=== PATIENT | female | born 1995 | race Caucasian/White ===

== ENCOUNTER 2016-07-10 18:47 | Outpatient (CLI) | payer OTHER ==
[~2016-07-10] VITALS: Ht 152.4 cm; Wt 55.4 kg
[2016-07-10] MEDS ORDERED: PREN1TAB17 PO (18:59)
[2016-07-10 19:02] VITALS: Ht 152.4 cm; Wt 55.4 kg
[2016-07-10 19:03] VITALS: BP 97/50; RESP 15
[2016-07-10 20:27] LABS: ADD SCAN DIFF NO
[2016-07-10 20:28] LABS: BASOPHILS % 0.2 % (0.0-2.0); EOSINOPHILS # 0.1 10^3/ul (0.0-0.5); EOSINOPHILS % 1.2 % (0.0-7.0); HEMATOCRIT 31.6 % (37.0-47.0); HEMOGLOBIN 11.3 g/dl (12.0-16.0); LYMPHOCYTES # 0.9 10^3/ul (0.8-2.9); LYMPHOCYTES % 14.3 % (15.0-51.0); MEAN CORPUSCULAR HEMOGLOBIN 32.9 pg (29.0-33.0); MEAN CORPUSCULAR HGB CONC 35.8 g/dl (32.0-37.0); MEAN CORPUSCULAR VOLUME 92.1 fl (82.0-101.0); MEAN PLATELET VOLUME 9.5 fl (7.4-10.4); MONOCYTE # 0.4 10^3/ul (0.3-0.9); MONOCYTES % 6.2 % (0.0-11.0); NEUTROPHIL # 4.6 10^3/ul (1.6-7.5); NEUTROPHILS % 77.6 % (39.0-77.0); PLATELET COUNT 180 10^3/UL (140-415); RED BLOOD COUNT 3.43 10^6/ul (4.20-5.40); WHITE BLOOD COUNT 5.9 10^3/ul (4.8-10.8)
[2016-07-10] MEDS ORDERED: LACTATED RINGER'S 1,000 ML IV ONE (20:30)
[2016-07-10] MEDS ORDERED: TERBUTALINE 1 MG/ML INJ SC ONE ×2 (20:30→22:00)
[2016-07-10 20:36] LABS: URINE BILIRUBIN (Dip) NEGATIVE (NEGATIVE); URINE BLOOD (Dip) NEGATIVE (NEGATIVE); URINE COLOR YELLOW (YELLOW); URINE GLUCOSE (Dip) NEGATIVE (NEGATIVE); URINE KETONES (Dip) NEGATIVE (NEGATIVE); URINE LEUKOCYTE ESTERASE (Dip) NEGATIVE (NEGATIVE); URINE NITRITE (Dip) NEGATIVE (NEGATIVE); URINE UROBILINOGEN (Dip) 1.0 E.U./dL (0.1-1.0)
[2016-07-10 20:48] LABS: ADD UMIC NO; URINE TOTAL PROTEIN (Dip) NEGATIVE (NEGATIVE)
[2016-07-10] MEDS ORDERED: LACTATED RINGER'S 1,000 ML IV SCH (21:00)
--- NOTE | 2016-07-10 21:04 | RADRPT ---
PROCEDURE: Limited obstetric ultrasound CLINICAL INDICATION: Pain , labor TECHNIQUE: Multiple transverse and longitudinal grayscale images of the pelvis were obtained dia sabdominally and transvaginally.. COMPARISON: same day FINDINGS: The cervix is closed with a length of 4.2 cm. There is a single viable intrauterine gestation. Cardiac activity is present with 132 beats per min cecil. There is a vertex presentation. The placenta is anterior. There is no evidence for an abruption or placenta previa. MVP = 7.5 cm. RPTAT: AA IMPRESSION: Cervix length measures 4.2 cm. .Nithin Haider MD, MD Date Time Electronically viewed and signed by .Nithin Haider MD, on 07/10/2016 21:04 .S/
[2016-07-10] MEDS ORDERED: BETAMET NA PHOS/AC(6 MG/ML) 5ML INJ IM ONE (22:00)
--- NOTE | 2016-07-10 23:37 | TRIAGE ---
OB Triage Datetime Report Generated by CPN: 07/10/2016 23:37 Datetime: 07/10/2016 23:18 Stage of : OB Triage Datetime: 07/10/2016 22:50 Stage of : OB Triage Labor Evaluation Frequency: 0 Monitor Mode: External Resting Tone [place]: Relaxed Heart Rate FHR Baseline Rate: 130 Monitor Mode: External US FHR Baseline Changes: No Baseline Change Variability: Moderate 6-25 bpm Accelerations: 15X15 Decelerations: None Category: Category I Datetime: 07/10/2016 21:55 Stage of : OB Triage Datetime: 07/10/2016 21:06 Monitor Mode: External Quality: Mild Pattern: Normal: <= 5 Contractions in 10 Minutes Resting Tone [place]: Relaxed Heart Rate FHR Baseline Rate: 120 Monitor Mode: External US Variability: Moderate 6-25 bpm Accelerations: 15X15 Datetime: 07/10/2016 21:04 Monitor Mode: External Monitor Mode: External US Datetime: 07/10/2016 20:00 Stage of : OB Triage Datetime: 07/10/2016 19:34 Stage of : OB Triage Maternal Assessment Level of Consciousness: Fully Conscious Headache: Denies Blurred Vision: No Nausea/Vomiting: Denies RUQ Epigastric Pain: Denies Facial Edema: None Labor Evaluation Frequency: 5-10 Monitor Mode: External Duration (sec)2399: 20-40sec Quality: Mild Pattern: Normal: <= 5 Contractions in 10 Minutes Resting Tone [place]: Relaxed Heart Rate FHR Baseline Rate: 150 Monitor Mode: External US FHR Baseline Changes: No Baseline Change Variability: Moderate 6-25 bpm Accelerations: 15X15 Pain Assessment Pain Scale: 7 Pain Presence: Intermittent Pain Type: Cramping; Pressure Pain Location: Abdomen; Back Datetime: 07/10/2016 19:07 Stage of : OB Triage Assessment Type: Triage Maternal Assessment Level of Consciousness: Fully Conscious DTR's/Clonus: DTRs 2+; No Clonus Headache: Denies Blurred Vision: No Respiratory Effort: Unlabored; Regular Rhythm; Equal Expansion Breath Sounds, Left: Clear and Equal Breath Sounds, Right: Clear and Equal Nausea/Vomiting: Denies RUQ Epigastric Pain: Denies Lower Extremities Edema: None Degree: None Upper Extremities Edema: None Degree: None Facial Edema: None Temperature Route: Oral Fall Risk Assessment History of Falling: (0) No Secondary Diagnosis: (0) No Ambulatory Aid: (0) Bedrest/Nurse Assist IV Therapy: (0) No Gait: (0) Normal/Bedrest/Immobile Mental Status: (0) Oriented to Own Ability Fall Score: 0 Fall Risk Score Definition: No Risk: No action required Monitor Mode: External Heart Rate FHR Baseline Rate: 155 Monitor Mode: External US Variability: Moderate 6-25 bpm Accelerations: 15X15 Decelerations: None Category: Category I Pain Assessment Pain Scale: 7 Pain Presence: Intermittent Pain Type: lower abdominal pain Datetime: 07/10/2016 19:05 Time of Arrival: 07/10/2016 18:41 EGA: 25.4 Arrived By: Ambulatory Arrived From: Home Chief Complaint: lower bilateral pressure Movement: Present Contractions: Denies/Absent Rupture of Membranes: Denies Vaginal Discharge: Denies Recent Sexual Intercouse: Denies Abdominal Trauma: Not Applicable Patient Complaints: Other Additional Patient Complaints: ucs Time Provider Notified: 07/10/2016 20:00 Provider Notified: Dr Mcintosh Initial Plan: [email or web address] , call
--- NOTE | 2016-07-10 23:54 | PN ---
Date/Time of Note Date/Time of Note DATE: 07/10/16 TIME: 23:48 OB Subjective Subjective Subjective c/o lower abdominal pain radiate to back 21 y.o x1 x2 c/s at 25w4d pain level 7/10 OB Objective Objective Objective afebrile u/a neg cervical length 4.2 ANEESH 7.5 wbc 8900 OB Assessment/Plan Other Assessment: IUP 25w4d r/o PTL resolved s/p x1 bmz Other plan: X2 terbutaline with IV hydration X1BMZ given rth for next BMZ in 24hr TESSIE HOLLIDAY MD July 10, 2016 23:54
== END 2016-07-10 23:33 | disposition home or self-care (01) ==
LOC: OBT 18:47 → L-D 18:48 → OBT 23:33
PROVIDERS: ATTEND Obstetrics & Gynecology
DX: O26.892 Other specified pregnancy related conditions, second trimester (principal); R10.30 Lower abdominal pain, unspecified; M54.9 Dorsalgia, unspecified; O60.02 Preterm labor without delivery, second trimester; Z3A.25 25 weeks gestation of pregnancy
CPT/HCPCS: 76815; 76817; 81003; 85025; J0702; J3105; J7120; 36415; 96360; 96361; 96372; G0463

== ENCOUNTER 2016-07-11 21:35 | Outpatient (CLI) | payer OTHER ==
[~2016-07-11] VITALS: Ht 152.4 cm; Wt 56.3 kg
[~2016-07-11 21:35] MED LIST: PREN1TAB17 PO
[2016-07-11 21:53] VITALS: BP 102/54; PULSE 76; RESP 18; Ht 152.4 cm; Wt 56.3 kg
[2016-07-11] MEDS ORDERED: BETAMET NA PHOS/AC(6 MG/ML) 5ML INJ IM ONE (22:00)
--- NOTE | 2016-07-11 22:35 | QN ---
Documentation Comment OB Triage- Laborist Pt is a 21yo at 25+5 with hx of C/S x2 presenting for 2nd dose of BMZ. Pt was seen in OB triage last night for r/o labor. TVCL 4.2cm and UCs resolved s/p Terbutaline. Pt received 1st dose of BMZ at that time. Tonight, pt denies UCs, LOF or VB. Reports normal FM. VS 97.9 102/54 76 18 FHT: Baseline 130s, mod kat, +accels, no decels [place]: Acontractile Gen: well appearing, NAD A/P: 2nd dose BMZ in the setting of concern for PTL 1d ago ->Pt received 2nd dose of BMZ and appropriate for d/c home. ->PTL and PPROM precautions reviewed. Questions answered to patient's satisfaction Pt to f/up with Dr. Mcintosh's office in 2d as scheduled CATERINA ADAMS MD July 11, 2016 22:35
--- NOTE | 2016-07-11 23:18 | TRIAGE ---
OB Triage Datetime Report Generated by CPN: 07/11/2016 23:18 Datetime: 07/11/2016 22:15 Stage of : OB Triage Contraction Comments: DR ADAMS AT BEDSIDE, TALKED TO PT., REVIEWED STRIP, DISCHARGE ORDERS RCVD , INSTRUCTIONS GIVEN, PT. HOME UNDELIVERED AT 2222 Datetime: 07/11/2016 22:00 Stage of : OB Triage Temperature Route: Oral Frequency: 0 Monitor Mode: External Pattern: Normal: <= 5 Contractions in 10 Minutes Resting Tone [place]: Relaxed FHR Baseline Rate: 140 Monitor Mode: External US Variability: Moderate 6-25 bpm Accelerations: 15X15 Decelerations: None Category: Category I Pain Presence: None/Denies Datetime: 07/11/2016 21:50 Time of Arrival: 07/11/2016 21:32 EGA: 25.5 Chief Complaint: CAME FOR 2ND DOSE OF BETAMETHASONE Movement: Present Contractions: Denies/Absent Rupture of Membranes: Denies Vaginal Bleeding: None Vaginal Discharge: Denies Time Provider Notified: 07/11/2016 21:50 Provider Notified: ADAMS Initial Plan: EFM, ASSESSMENT, CALL MD FOR ORDERS Datetime: 07/11/2016 21:40 Assessment Type: Triage Level of Consciousness: Fully Conscious DTR's/Clonus: DTRs 2+; No Clonus Headache: Denies Blurred Vision: No Respiratory Effort: Unlabored; Regular Rhythm; Equal Expansion Breath Sounds, Left: Clear and Equal Breath Sounds, Right: Clear and Equal Nausea/Vomiting: Denies RUQ Epigastric Pain: Denies Lower Extremities Edema: None Upper Extremities Edema: None Facial Edema: None History of Falling: (0) No Secondary Diagnosis: (0) No Ambulatory Aid: (0) Bedrest/Nurse Assist IV Therapy: (0) No Gait: (0) Normal/Bedrest/Immobile Mental Status: (0) Oriented to Own Ability Fall Score: 0 Fall Risk Score Definition: No Risk: No action required
== END 2016-07-11 22:22 | disposition home or self-care (01) ==
LOC: OBT 21:35 → L-D 21:36 → OBT 22:22
PROVIDERS: ATTEND Obstetrics & Gynecology
DX: O60.02 Preterm labor without delivery, second trimester (principal); Z3A.25 25 weeks gestation of pregnancy
CPT/HCPCS: J0702

== ENCOUNTER 2016-09-25 12:11 | Outpatient (CLI) | payer OTHER ==
[~2016-09-25] VITALS: Ht 152.4 cm; Wt 57.2 kg
[2016-09-25 12:37] VITALS: Ht 152.4 cm; Wt 57.2 kg
[2016-09-25 12:38] VITALS: BP 89/52; PULSE 78; RESP 18
[2016-09-25] MEDS ORDERED: LACTATED RINGER'S 1,000 ML IV SCH (13:30)
[2016-09-25] MEDS ORDERED: TERBUTALINE 1 MG/ML INJ SC ONE (13:30)
[2016-09-25 14:09] LABS: BASOPHILS % 0.1 % (0.0-2.0); EOSINOPHILS # 0.1 10^3/ul (0.0-0.5); EOSINOPHILS % 1.9 % (0.0-7.0); LYMPHOCYTES # 1.6 10^3/ul (0.8-2.9); LYMPHOCYTES % 21.7 % (15.0-51.0); MEAN CORPUSCULAR HEMOGLOBIN 33.1 pg (29.0-33.0); MEAN CORPUSCULAR HGB CONC 36.4 g/dl (32.0-37.0); MEAN CORPUSCULAR VOLUME 91.2 fl (82.0-101.0); MEAN PLATELET VOLUME 9.9 fl (7.4-10.4); MONOCYTE # 0.5 10^3/ul (0.3-0.9); MONOCYTES % 7.1 % (0.0-11.0); NEUTROPHIL # 5.2 10^3/ul (1.6-7.5); NEUTROPHILS % 68.9 % (39.0-77.0); PLATELET COUNT 178 10^3/UL (140-415); RED BLOOD COUNT 3.62 10^6/ul (4.20-5.40); RED CELL DISTRIBUTION WIDTH 11.9 % (11.5-14.5); WHITE BLOOD COUNT 7.5 10^3/ul (4.8-10.8)
[2016-09-25 14:13] LABS: ADD UMIC YES; UR ASCORBIC ACID NEGATIVE (NEGATIVE); UR BACTERIA FEW /HPF (NONE SEEN); UR BILIRUBIN (Dip) NEGATIVE (NEGATIVE); UR BLOOD (Dip) NEGATIVE (NEGATIVE); UR CLARITY SLIGHTLY CLOUDY (CLEAR); UR COLOR YELLOW (YELLOW); UR GLUCOSE (Dip) NEGATIVE (NEGATIVE); UR KETONES (Dip) NEGATIVE (NEGATIVE); UR LEUKOCYTE ESTERASE (Dip) 1+ Leu/ul (NEGATIVE); UR NITRITE (Dip) NEGATIVE (NEGATIVE); UR RBC 1 /HPF (0-5); UR SPECIFIC GRAVITY (Dip) 1.019 (1.003-1.030); UR SQUAMOUS EPITHELIAL CELL FEW /HPF (FEW); UR TOTAL PROTEIN (Dip) NEGATIVE (NEGATIVE); UR UROBILINOGEN (Dip) NEGATIVE (NEGATIVE)
--- NOTE | 2016-09-25 15:04 | PN ---
Triage Information Date/Time 09/25/2016 Weeks of Gestation 36+ : 4 Para: 3 Diabetes: none Hypertention: none Additional information 21 y/o female with contractions started today denies ROM and vaginal bleeding had history of 2 previous C-sections Objective Vital Signs Date Time Temp Pulse Resp B/P Pulse Ox O2 Delivery O2 Flow Rate FiO2 09/25/16 12:38 98.0 78 18 89/52 Room Air Heart Rate: 140's Heart Rate Comments reactive Contractions: 6-10 Minutes Apart Exam differed Results/Medications Result Diagram: 09/25/16 1330 Results 24 hrs Laboratory Tests Test 09/25/16 13:30 09/25/16 13:40 White Blood Count 7.5 # Red Blood Count 3.62 L Hemoglobin 12.0 Hematocrit 33.0 L Mean Corpuscular Volume 91.2 Mean Corpuscular Hemoglobin 33.1 H Mean Corpuscular Hemoglobin Concent 36.4 Red Cell Distribution Width 11.9 Platelet Count 178 Mean Platelet Volume 9.9 Neutrophils % 68.9 Lymphocytes % 21.7 Monocytes % 7.1 Eosinophils % 1.9 Basophils % 0.1 Nucleated Red Blood Cells % 0.0 Neutrophils # 5.2 Lymphocytes # 1.6 Monocytes # 0.5 Eosinophils # 0.1 Basophils # 0.0 Nucleated Red Blood Cells # 0.0 Urine Color YELLOW Urine Clarity SLIGHTLY CLOUDY A Urine pH 6.0 Urine Specific [place] 1.019 Urine Ketones NEGATIVE Urine Nitrite NEGATIVE Urine Bilirubin NEGATIVE Urine Urobilinogen NEGATIVE Urine Leukocyte Esterase 1+ H Urine Microscopic RBC 1 Urine Microscopic WBC 2 Urine Squamous Epithelial Cells FEW Urine Bacteria FEW A Urine Hemoglobin NEGATIVE Urine Glucose NEGATIVE Urine Total Protein NEGATIVE Medications Current Medications Lactated Ringer's (Lr) 1,000 ml @ 125 mls/hr Q8H IV Last administered on t 13:41; Admin Dose 125 MLS/HR; Start 09/25/16 at 13:30 Assessment/Plan after SQ terbutaline and IV hydration contractions resolved and patient subjectively felt better will follow outpatient and give labor precautions KORTNEY CROCKETT MD Sep 25, 2016 15:04
--- NOTE | 2016-09-25 15:45 | TRIAGE ---
OB Triage Datetime Report Generated by CPN: 09/25/2016 15:45 Datetime: 09/25/2016 14:56 Labor Evaluation Frequency: 0 Monitor Mode: External Pattern: Normal: <= 5 Contractions in 10 Minutes Resting Tone [place]: Relaxed Heart Rate FHR Baseline Rate: 120 Monitor Mode: External US Variability: Moderate 6-25 bpm Accelerations: 15X15 Decelerations: None Category: Category I Pain Presence: None/Denies Datetime: 09/25/2016 14:15 Pain Assessment Pain Scale: 2 Pain Presence: Intermittent Pain Type: Pressure Pain Location: Abdomen Pain Relief Measures: Comfort Measures Datetime: 09/25/2016 14:10 Labor Evaluation Frequency: X2 Monitor Mode: External Duration (sec)2399: 60-90 Pattern: Normal: <= 5 Contractions in 10 Minutes Resting Tone [place]: Relaxed Heart Rate FHR Baseline Rate: 120 Monitor Mode: External US Variability: Moderate 6-25 bpm Accelerations: 15X15 Decelerations: None Category: Category I Datetime: 09/25/2016 13:03 Pain Assessment Pain Scale: 7 Pain Presence: Intermittent Pain Type: Pressure Pain Location: Perineum Pain Relief Measures: Comfort Measures Datetime: 09/25/2016 12:44 Assessment Type: Admission Assessment Maternal Assessment Level of Consciousness: Fully Conscious DTR's/Clonus: DTRs 2+; No Clonus Headache: Denies Blurred Vision: No Respiratory Effort: Unlabored; Regular Rhythm; Equal Expansion Breath Sounds, Left: Clear and Equal Breath Sounds, Right: Clear and Equal Nausea/Vomiting: Denies RUQ Epigastric Pain: Denies Lower Extremities Edema: None Degree: None Upper Extremities Edema: None Degree: None Facial Edema: None Fall Risk Assessment History of Falling: (0) No Secondary Diagnosis: (0) No Ambulatory Aid: (0) Bedrest/Nurse Assist IV Therapy: (0) No Gait: (0) Normal/Bedrest/Immobile Mental Status: (0) Oriented to Own Ability Fall Score: 0 Fall Risk Score Definition: No Risk: No action required Datetime: 09/25/2016 12:43 Labor Evaluation Frequency: 1/30MIN Monitor Mode: External Duration (sec)2399: 90 Quality: Mild Pattern: Normal: <= 5 Contractions in 10 Minutes Resting Tone [place]: Relaxed Heart Rate FHR Baseline Rate: 130 Monitor Mode: External US Variability: Moderate 6-25 bpm Accelerations: 15X15 Decelerations: None Category: Category I Datetime: 09/25/2016 12:42 Time of Arrival: 09/25/2016 12:20 EGA: 37.0 Arrived By: Ambulatory Arrived From: Home Chief Complaint: uc's Movement: Present Contractions: Regular Time Contractions Began: 09/25/2016 05:00 Contractions: Q15 Rupture of Membranes: Denies Vaginal Bleeding: None Vaginal Discharge: Denies Recent Sexual Intercouse: Denies Abdominal Trauma: Not Applicable Patient Complaints: Contractions Time Provider Notified: 09/25/2016 13:08 Provider Notified: DR. PYLE Initial Plan: NST Datetime: 07/11/2016 21:50 EGA: 26.1 Datetime: 07/11/2016 21:40 Fall Score: 0 Fall Risk Score Definition: No Risk: No action required Datetime: 07/10/2016 19:07 Fall Score: 0 Fall Risk Score Definition: No Risk: No action required Datetime: 07/10/2016 19:05 EGA: 25.4
== END 2016-09-25 15:47 | disposition home or self-care (01) ==
LOC: OBT 12:11 → L-D 12:11 → OBT 15:47
PROVIDERS: ATTEND Obstetrics & Gynecology
DX: O60.03 Preterm labor without delivery, third trimester (principal); Z3A.36 36 weeks gestation of pregnancy
CPT/HCPCS: 81001; 85025; 96365; J7120; Z7500; G0463; J3105

== ENCOUNTER 2016-10-05 | Outpatient (CLI) | payer OTHER ==
[~2016-10-05] VITALS: Ht 152.4 cm; Wt 59.0 kg
[2016-10-05] MEDS ORDERED: LACTATED RINGER'S 1,000 ML IV SCH (02:15)
--- NOTE | 2016-10-05 02:59 | TRIAGE ---
OB Triage Datetime Report Generated by CPN: 10/05/2016 02:59 Datetime: 10/05/2016 01:57 Pain Assessment Pain Scale: 9 Pain Presence: Intermittent Pain Type: Cramping Pain Location: Abdomen Datetime: 10/05/2016 00:55 Vaginal Exam Dilatation (cms): 1.0 Effacement (%): 0 Station: -3 Exam By: MDerick Tungate RN Vaginal Bleeding: None Cervix, Consistency: Moderate Cervix, Position: Posterior Datetime: 10/05/2016 00:18 Stage of : OB Triage Assessment Type: Triage Maternal Assessment Level of Consciousness: Fully Conscious DTR's/Clonus: DTRs 2+; No Clonus Headache: Denies Blurred Vision: No Respiratory Effort: Unlabored; Regular Rhythm; Equal Expansion Breath Sounds, Left: Clear and Equal Breath Sounds, Right: Clear and Equal Nausea/Vomiting: Denies RUQ Epigastric Pain: Denies Lower Extremities Edema: None Degree: None Upper Extremities Edema: None Degree: None Facial Edema: None Temperature Route: Oral Fall Risk Assessment History of Falling: (0) No Secondary Diagnosis: (0) No Ambulatory Aid: (0) Bedrest/Nurse Assist IV Therapy: (0) No Gait: (0) Normal/Bedrest/Immobile Mental Status: (0) Oriented to Own Ability Fall Score: 0 Fall Risk Score Definition: No Risk: No action required Pain Assessment Pain Scale: 9 Pain Presence: Intermittent Pain Type: Cramping Pain Location: Abdomen Datetime: 10/05/2016 00:10 Time of Arrival: 10/05/2016 00:00 EGA: 38.3 Arrived By: Wheelchair Arrived From: Home Chief Complaint: UC's Movement: Present Contractions: Regular Time Contractions Began: 10/04/2016 08:00 Rupture of Membranes: Denies Vaginal Bleeding: None Vaginal Discharge: Denies Recent Sexual Intercouse: Denies Patient Complaints: Contractions Time Provider Notified: 10/05/2016 00:18 Provider Notified: Dr. Morelos Initial Plan: CEFM, VE Datetime: 09/25/2016 12:44 Fall Score: 0 Fall Risk Score Definition: No Risk: No action required Datetime: 09/25/2016 12:42 EGA: 37.0 Datetime: 07/11/2016 21:50 EGA: 26.1 Datetime: 07/11/2016 21:40 Fall Score: 0 Fall Risk Score Definition: No Risk: No action required Datetime: 07/10/2016 19:07 Fall Score: 0 Fall Risk Score Definition: No Risk: No action required Datetime: 07/10/2016 19:05 EGA: 25.4
[2016-10-05 03:01] VITALS: Ht 152.4 cm; Wt 59.0 kg
[2016-10-05 03:02] VITALS: BP 109/57; PULSE 60; RESP 18
--- NOTE | 2016-10-05 05:02 | RADRPT ---
PROCEDURE: OB ultrasound for biophysical profile CLINICAL INDICATION: Poor tone. TECHNIQUE: Multiple sonographic images of the pelvis were obtained. Transabdominal views of the g ravid uterus are available for review. The images were reviewed on a PACS workstation. COMPARISON: None FINDINGS: breathing movement = 2/2 tone = 2/2 motion = 2/2 ANEESH = 2/2 ANEESH = 9.8 cm Single live intrauterine with cardiac activity of 113 bpm. position is cephal ic. The placenta is anterior. IMPRESSION: 1. Single live intrauterine gestation. 2. Biophysical profile = 8/8. 3. ANEESH = 9.8 cm. RPTAT: HH .Kaylie Wall MD, MD Date Time Electronically viewed and signed by .Kaylie Wall MD, on 10/05/2016 05:02 .G/
--- NOTE | 2016-10-05 07:20 | PN ---
Triage Information Date/Time Oct 05, 2016 at 02:15 Reason for visit: Uterine contractions Weeks of Gestation 38w3d /Para Diabetes: none Hypertention: none Additional information vaginal discharge ?leaking fluid Objective Vital Signs Date Time Temp Pulse Resp B/P Pulse Ox O2 Delivery O2 Flow Rate FiO2 10/05/16 03:02 98.6 60 18 109/57 Room Air Heart Rate: 120's Contractions: >10 Minutes Apart Exam VE 1/long/-3 ROM plus neg spec exam ? Results/Medications Results 24 hrs Laboratory Tests Test 10/05/16 04:10 Membranes Rupture NEGATIVE Medications Current Medications Lactated Ringer's (Lr) 1,000 ml @ 125 mls/hr Q8H IV ; Start 10/05/16 at 02:15 Imaging Results BPP 10/09 ANEESH 9.4 Disposition: Discharge Assessment/Plan IUP 38w3d with X2 previous c/s NIL PLAN discharge home and schedule elective c/s in 4days TESSIE HOLLIDAY MD Oct 05, 2016 07:19
== END 2016-10-05 06:59 | disposition home or self-care (01) ==
LOC: L-D → OBT → L-D 02:15 → OBT 02:15 → UNDOADMIN 02:15 → L-D 06:59
PROVIDERS: ATTEND Obstetrics & Gynecology
DX: O34.219 Maternal care for unspecified type scar from previous cesarean delivery (principal); Z3A.38 38 weeks gestation of pregnancy
CPT/HCPCS: 76818; 84112; Z7500; G0463; J7120

== ENCOUNTER 2016-10-09 15:30 | Inpatient (IN) | payer OTHER ==
[~2016-10-09] VITALS: Ht 157.5 cm; Wt 60.0 kg
[2016-10-09] MEDS ORDERED: LACTATED RINGER'S 1,000 ML IV SCH (15:37)
[2016-10-09] MEDS ORDERED: METHYLERGONOVINE 0.2 MG INJ IM PRN (16:00)
[2016-10-09] MEDS ORDERED: OXYTOCIN 30 UNITS/LR 500 ML IV SCH (16:00)
[2016-10-09] MEDS ORDERED: CEFAZOLIN 2 GM/50 ML (PMX) 50 ML IV SCH (16:00)
[2016-10-09] MEDS ORDERED: MISOPROSTOL 200 MCG TAB PR PRN (16:00)
[2016-10-09] MEDS ORDERED: OXYTOCIN 30 UNITS/LR 500 ML IV PRN (16:00)
[2016-10-09] MEDS ORDERED: CARBOPROST 250 MCG INJ IM PRN (16:00)
[2016-10-09] MEDS ORDERED: AMPICILLIN 2 GM/NS (PMX) 100 ML IV ONE (16:30)
[2016-10-09 16:39] LABS: BASOPHILS % 0.3 % (0.0-2.0); EOSINOPHILS # 0.2 10^3/ul (0.0-0.5); EOSINOPHILS % 1.6 % (0.0-7.0); HEMATOCRIT 35.6 % (37.0-47.0); LYMPHOCYTES # 1.9 10^3/ul (0.8-2.9); LYMPHOCYTES % 20.9 % (15.0-51.0); MEAN CORPUSCULAR HEMOGLOBIN 32.9 pg (29.0-33.0); MEAN CORPUSCULAR HGB CONC 36.5 g/dl (32.0-37.0); MEAN CORPUSCULAR VOLUME 90.1 fl (82.0-101.0); MEAN PLATELET VOLUME 9.6 fl (7.4-10.4); MONOCYTE # 0.5 10^3/ul (0.3-0.9); MONOCYTES % 4.9 % (0.0-11.0); NEUTROPHIL # 6.5 10^3/ul (1.6-7.5); NEUTROPHILS % 71.9 % (39.0-77.0); PLATELET COUNT 212 10^3/UL (140-415); RED BLOOD COUNT 3.95 10^6/ul (4.20-5.40); WHITE BLOOD COUNT 9.1 10^3/ul (4.8-10.8)
[2016-10-09 16:55] LABS: INR 0.87; PROTIME 11.8 Sec (12.2-14.2); PT RATIO 0.9
[2016-10-09 16:56] LABS: PARTIAL THROMBOPLASTIN TIME 27.4 Sec (25.0-35.0)
[2016-10-09 17:09] VITALS: Ht 157.5 cm; Wt 60.0 kg
[2016-10-09 17:11] VITALS: BP 97/53; PULSE 63; RESP 19
[2016-10-09] MEDS ORDERED: LACTATED RINGER'S 1,000 ML IV ONE (17:13)
[2016-10-09] MEDS ORDERED: FAMOTIDINE 20 MG INJ IV ONE (17:30)
[2016-10-09] MEDS ORDERED: METOCLOPRAMIDE 10 MG INJ IV ONE (17:30)
[2016-10-09] MEDS ORDERED: CITRIC ACID/NA CITRATE 30 ML CUP PO ONE (17:30)
[2016-10-09] MEDS ORDERED: CEFAZOLIN 1 GM INJ ONE (18:30)
[2016-10-09] MEDS ORDERED: EPHEDrine SULFATE 50 MG/5 ML SYG ONE (18:30)
[2016-10-09] MEDS ORDERED: FENTAnyl 50 MCG/ML VIAL ONE (18:37)
[2016-10-09] MEDS ORDERED: morphine SULFATE/PF (10 MG/10 ML) INJ ONE (18:37)
[2016-10-09] MEDS ORDERED: PHENYLephrine (100 MCG/ML) 5ML SYG ONE (18:55)
[2016-10-09] MEDS ORDERED: ONDANSETRON 4 MG INJ ONE (19:13)
[2016-10-09] MEDS ORDERED: OXYTOCIN 30 UNITS/LR 500 ML IV ONE (19:15)
[2016-10-09] MEDS ORDERED: ONDANSETRON 4 MG INJ IV PRN ×2 (19:30→22:30)
[2016-10-09] MEDS ORDERED: PROCHLORPERAZINE 10 MG INJ IV PRN (19:30)
[2016-10-09] MEDS ORDERED: MEPERIDINE 25 MG INJ IV PRN (19:30)
[2016-10-09] MEDS ORDERED: FENTAnyl 50 MCG/ML VIAL IV PRN (19:30)
[2016-10-09] MEDS ORDERED: KETOROLAC 30 MG INJ IV PRN (19:30)
[2016-10-09] MEDS ORDERED: DIPHENHYDRAMINE 50 MG INJ IV PRN ×2 (19:30→22:30)
[2016-10-09] MEDS ORDERED: HYDROmorphONE (0.2 MG/ML) 10ML SYG IV PRN (19:30)
--- NOTE | 2016-10-09 19:44 | HP ---
Date/Time of Note Date/Time of Note DATE: 10/09/16 TIME: 19:42 OB - History Hx of Present Free Text/Dictation Admitted for repeat at term Last Menstrual Period: Jan 10, 2016 Estimated Due Date: Oct 16, 2016 : 4 Para: 3 Care: Good Care Ultrasounds: Normal mid trimester US Obstetrical Complications: None Medical Complications: None Past Family/Social History * Past Medical, Surgical, Family and Obstetric Histories reviewed from chart. Blood Type: O+ Rubella: immune RPR/VDRL: Negative GBS Status: Unknown HBsAG: Negative OB Admission Exam Vital Signs Vital Signs Vital Signs Date Time Temp Pulse Resp B/P Pulse Ox O2 Delivery O2 Flow Rate FiO2 10/09/16 17:11 98.0 63 19 97/53 99 Room Air Physical Exam HEENT: WNL Heart: Rhythm Normal Lungs: Clear, Equal Abdomen: WNL Extremities: Normal Reflexes: Normal Cervical Dilatation: None Effacement: 0% Station: -3 Membranes: Intact Heart Rate: 140's Accelerations: Accelerations Present Decelerations: No Decelerations Varibility: Marked Contractions on Admission: None Last 72 hours Lab Results CBC & BMP 10/09/16 16:14 OB Assessment/Plan Reason for admission: section Other Assessment: Term gestation Previous times 2 Other plan: Repeat KORTNEY CROCKETT MD Oct 09, 2016 19:44
--- NOTE | 2016-10-09 19:46 | OPR ---
Operative Report Planned Procedure Procedure date Oct 09, 2016 Procedure(s) Repeat Performed by: KORTNEY CROCKETT MD Assisting provider: TESSIE HOLLIDAY MD Anesthesiologist: NATY BLOCK MD Pre-procedure diagnosis Term gestation Previous 2 Anesthesia Type: spinal Procedure Description Under satisfactory anaesthesia a Pfannenstiel incision was made two fingerbreadth above and parallel to the symphysis of pubis around the previous scar and previous scar was removed Incision was extended laterally to the border of the Recti muscles on either sides. Incision was carried down with sharp and blunt dissection until fascia was reached. Anterior Recti muscle fascia was incised in mid portion and incision extended laterally to the border of skin incision. Fascia was mobilized from muscle superiorly and Recti muscles were from midline using sharp and blunt dissection. Peritoneum was visualized; Avoiding bowel and bladder it was incised . Incision was extended superiorly and inferiorly. Bladder blade was placed. Posterior peritoneum covering the lower segment of the uterus and lower segment of the uterus were incised.Low transverse uterine incision was made on lower segment of the uterus. Incision extended laterally to the border of Round Lig. on either sides and baby was delivered from OT. position . Amniotic fluid appeared clear. Cord blood was obtained and cord had 3 vessels . Placenta was delivered spontaneously and appeared intact and complete. Intrauterine cavity was rubbed with a laparotomy sponge. Uterine incision was closed in 2 layers using running stitches of No1 Monocryl. Hemostasis appeared secure. Ovaries and Fallopian tubes were within normal limits. Announcing needle, lap sponge and instrument count to be correct abdomen was closed in layers as follows: Peritoneum and Recti muscles with running stitches of 20 Vicryl. Fascia with running stitch of No 1 PDS. Subcutaneous tissue with running stitches of 20 Chromic and skin was closed using chalino. Patient tolerated the procedure well and was transferred to [facility] in good condition. Post-Procedure Post-procedure diagnosis Status post Findings: Live Baby Normal right and left fallopian tubes Specimen removed: No Complications: None Pt Condition post procedure: stable Disposition: PACU Physician Certification I, the undersigned physician, hereby certify that I have discussed the procedure described in this consent form with this patient (or the patient's legal reimbursement representative), including: * The risk and benefits of the procedure; * Any adverse reactions that may reasonably be expected to occur; * Any alternative efficacious methods of treatment which may be medically viable ; * The potential problems that may occur during recuperation; * Potential for blood transfusion and associated risks/benefits; and * Any research or economic interest I may have regarding this treatment. I further certify that the patient/legally responsible person was encouraged to ask question and that all questions were answered. KORTNEY CROCKETT MD Oct 09, 2016 19:46
[2016-10-09 22:24] VITALS: BP 111/63; PULSE 71; RESP 18
[2016-10-09] MEDS ORDERED: NALBUPHINE HCL (10 MG/1 ML) INJ IV PRN (22:30)
[2016-10-09] MEDS ORDERED: ZOLPIDEM 5 MG TAB PO PRN (22:30)
[2016-10-09] MEDS ORDERED: NALOXONE (0.4 MG/ML) INJ IV PRN (22:30)
[2016-10-09] MEDS ORDERED: HYDROmorphONE 1 MG/ML SYG IV PRN ×2 (22:30)
[2016-10-10] MEDS ORDERED: NA PHOSPHATE/BIPHOS 133 ML ENEMA PR PRN (02:30)
[2016-10-10] MEDS ORDERED: OXYTOCIN 30 UNITS/LR 500 ML IV PRN (02:30)
[2016-10-10] MEDS ORDERED: METHYLERGONOVINE 0.2 MG INJ IM PRN (02:30)
[2016-10-10] MEDS ORDERED: MISOPROSTOL 200 MCG TAB PR PRN (02:30)
[2016-10-10] MEDS ORDERED: CARBOPROST 250 MCG INJ IM PRN (02:30)
[2016-10-10] MEDS ORDERED: LANOLIN 7 GM TUBE TOP PRN (02:30)
[2016-10-10] MEDS: LACTATED RINGER'S 1,000 ML IV SCH ×3 (03:09→19:31)
[2016-10-10] MEDS: CEFAZOLIN 2 GM/50 ML (PMX) 50 ML IV SCH ×3 (03:12→17:14)
[2016-10-10 04:00] VITALS: BP 100/55; PULSE 67; RESP 18
[2016-10-10] MEDS: KETOROLAC 30 MG INJ IV PRN ×3 (06:03→17:14)
[2016-10-10] MEDS: CLINDAMYCIN 300 MG CAP PO SCH ×4 (06:03→23:55)
[2016-10-10 07:35] VITALS: BP 104/57; PULSE 66; RESP 19
[2016-10-10 10:24] LABS: BASOPHILS % 0.1 % (0.0-2.0); EOSINOPHILS # 0.1 10^3/ul (0.0-0.5); EOSINOPHILS % 0.9 % (0.0-7.0); HEMATOCRIT 28.5 % (37.0-47.0); HEMOGLOBIN 10.3 g/dl (12.0-16.0); LYMPHOCYTES # 1.5 10^3/ul (0.8-2.9); LYMPHOCYTES % 18.6 % (15.0-51.0); MEAN CORPUSCULAR HEMOGLOBIN 33.1 pg (29.0-33.0); MEAN CORPUSCULAR HGB CONC 36.1 g/dl (32.0-37.0); MEAN CORPUSCULAR VOLUME 91.6 fl (82.0-101.0); MEAN PLATELET VOLUME 9.8 fl (7.4-10.4); MONOCYTE # 0.5 10^3/ul (0.3-0.9); MONOCYTES % 5.5 % (0.0-11.0); NEUTROPHIL # 6.1 10^3/ul (1.6-7.5); NEUTROPHILS % 74.3 % (39.0-77.0); PLATELET COUNT 164 10^3/UL (140-415); RED BLOOD COUNT 3.11 10^6/ul (4.20-5.40); WHITE BLOOD COUNT 8.2 10^3/ul (4.8-10.8)
[2016-10-10] MEDS: SENNA/DOCUSATE NA (8.6MG/50MG) TAB PO SCH ×2 (10:27→21:22)
[2016-10-10 12:03] VITALS: BP 106/53; PULSE 68; RESP 19
--- NOTE | 2016-10-10 13:56 | PN ---
Date/Time of Note Date/Time of Note DATE: 10/10/16 TIME: 13:55 Assessment/Plan VTE Prophylaxis VTE Prophylaxis Intervention: ambulation Lines/Catheters IV Catheter Type (from Nrsg): Peripheral IV Assessment/Plan Assessment/Plan Status post postop day 1 We will advance diet and ambulate Monitor vital signs Subjective 24 Hr Interval Summary Passing flatus No bowel movement Constitutional: BM, ambulates, flatus, improved, no complaints, urine output Pain Control: well controlled Exam/Review of Systems Vital Signs Vitals Vital Signs Date Time Temp Pulse Resp B/P Pulse Ox O2 Delivery O2 Flow Rate FiO2 10/10/16 12:03 98.0 68 19 106/53 Room Air 10/10/16 09:42 97 21 Intake and Output 10/09/16 10/09/16 10/10/16 15:00 23:00 07:00 Intake Total 2130 ml 1345 ml Output Total 800 ml 200 ml Balance 1330 ml 1145 ml Exam Free Text/Dictation Abdomen is soft, tender around incision Incision is covered Constitutional: alert, oriented, well developed Psych: nl mood/affect, no complaints Head: atraumatic, normocephalic Eyes: EOMI, nl conjunctiva, nl lids, nl sclera ENMT: mucosa pink and moist, nl external ears & nose, nl lips & teeth, nl nasal mucosa & septum Neck: non-tender, supple Respiratory: clear to auscultation, normal air movement Cardiovascular: nl pulses, regular rate and rhythm Gastrointestinal: nl liver, spleen, non-tender, soft Drains None Musculoskeletal: nl extremities to inspection, nl gait and stance Extremities: normal pulses Neurological: MARKETING DEVELOPMENT SPECIALIST II-XII intact, nl mental status, nl speech, nl strength Skin: nl turgor, rash or lesions Lymph: nl lymph nodes Results Result Diagram: 10/10/16 1000 KORTNEY CROCKETT MD Oct 10, 2016 13:56
[2016-10-10 15:55] VITALS: BP 100/64; PULSE 67; RESP 19
[2016-10-10 19:40] VITALS: BP 107/57; PULSE 69; RESP 19
[2016-10-10] MEDS ORDERED: BISACODYL 10 MG SUPP PR ONE (20:00)
[2016-10-10] MEDS ORDERED: LIDOCAINE 2% JELLY 5 ML TOP PRN (20:00)
[2016-10-10] MEDS: IBUPROFEN 800 MG TAB PO SCH (21:23)
[2016-10-10] MEDS: OXYCODONE/ACETAMINOPHEN (5/325) TAB PO PRN (23:01)
[2016-10-11] MEDS: LACTATED RINGER'S 1,000 ML IV SCH (02:08)
[2016-10-11 04:05] VITALS: BP 109/60; PULSE 69; RESP 19
[2016-10-11] MEDS: OXYCODONE/ACETAMINOPHEN (5/325) TAB PO PRN (04:05)
[2016-10-11] MEDS: IBUPROFEN 800 MG TAB PO SCH ×3 (05:37→21:39)
[2016-10-11] MEDS: CLINDAMYCIN 300 MG CAP PO SCH ×3 (05:37→17:30)
[2016-10-11 07:40] VITALS: BP 96/51; PULSE 63; RESP 16
[2016-10-11] MEDS: SENNA/DOCUSATE NA (8.6MG/50MG) TAB PO SCH ×2 (08:49→21:39)
[2016-10-11] MEDS: HYDROCODONE/APAP (5/325) TAB PO PRN ×2 (11:30→17:30)
--- NOTE | 2016-10-11 15:06 | DS ---
Date/Time of Note Date/Time of Note Home next day DATE: 10/11/16 TIME: 15:05 Obstetrical Discharge Record Final Diagnosis Final Diagnosis: Term delivered Other Final Diagnosis S/P C/S Section Section: Repeat Condition on Discharge Physical Assessment Last Vitals: see nurses notes Voiding: Yes Bowel Movement: Yes Breast: Soft, non-tender, Filling Fundus: Firm Abdomen and Incision: Soft bowel sounds present Slightly tender around incision Incision is clean without induration or erythema Hooks are in place Episiotomy: Not applicable Calf Tenderness: No Patient Condition: Good KORTNEY CROCKETT MD Oct 11, 2016 15:06
--- NOTE | 2016-10-11 15:08 | DS ---
Date/Time of Note Date/Time of Note DATE: 10/11/16 TIME: 15:07 Discharge Summary Admission/Discharge Info Admit Date/Time Oct 09, 2016 at 15:35 Discharge Date/Time October 12, 2016 Discharge Diagnosis Status post Patient Condition: Good Procedures Repeat Hx of Present Illness 21-year-old female underwent repeat Hospital Course Uncomplicated Home Meds Reported Medications Vit-Iron Fumarate-FA ( Tablet) 1 Each Tablet, 1 TAB PO DAILY, TAB 07/10/16 Follow-up Plan 3 4 days in clinic for staple removal Primary Care Provider Not On Staff Doctor Time spent on discharge: > 30 minutes KORTNEY CROCKETT MD Oct 11, 2016 15:08
--- NOTE | 2016-10-11 15:09 | PD.PPDC ---
CARDING SUPERVISOR Discharge Instruction Provider Information Physician Information 21-year-old female admitted for repeat section at term As repeat section without complications Diagnosis Final Diagnosis: Status post Condition Patient Condition: Good Diet Diet: Resume Regular Diet Activity/Restrictions Activity: May Shower Restrictions: No Exercising No Lifting Nothing in the Vagina Return to Work or School: Dec 10, 2016 Follow-up Follow-up with Physician: 3, 4, Day/Days (In clinic for staple removal) Return to clinic for SOFTWARE LICENSING SPECIALIST Instructions: Fever greater than 101 Chills OB Instructions: Breast Tenderness Depression Surgical Instructions: Incisional Drainage Incisional Redness KORTNEY CROCKETT MD Oct 11, 2016 15:09
[2016-10-11] MEDS ORDERED: IBUP800T25 PO (15:10)
[2016-10-11 16:00] VITALS: BP 99/58; PULSE 77; RESP 16
[2016-10-11 19:45] VITALS: BP 105/55; PULSE 62; RESP 19
[2016-10-12] MEDS: CLINDAMYCIN 300 MG CAP PO SCH ×4 (00:26→17:15)
[2016-10-12] MEDS: OXYCODONE/ACETAMINOPHEN (5/325) TAB PO PRN (00:38)
[2016-10-12 03:40] VITALS: BP 115/63; PULSE 69; RESP 19
[2016-10-12] MEDS: IBUPROFEN 800 MG TAB PO SCH ×2 (05:43→14:08)
[2016-10-12 07:30] VITALS: BP 113/69; PULSE 70; RESP 16
[2016-10-12] MEDS: SENNA/DOCUSATE NA (8.6MG/50MG) TAB PO SCH (08:21)
[2016-10-12] MEDS: HYDROCODONE/APAP (5/325) TAB PO PRN ×2 (08:21→15:29)
[2016-10-12] MEDS ORDERED: DIPHTH/TET/ACEL PERTUSS (ADULT) 0.5 ML VIAL IM* ONE (09:00)
[2016-10-12] MEDS ORDERED: MEASLES,MUMPS,RUBELLA VACCINE INJ SC* ONE (09:00)
[2016-10-12 16:00] VITALS: BP 114/70; PULSE 72; RESP 16
== END 2016-10-12 18:15 | disposition home or self-care (01) | DRG 766 ==
LOC: L-D 15:35 → PP1 22:22
PROVIDERS: ADMIT Obstetrics & Gynecology; ATTEND Obstetrics & Gynecology
PROC: 3E033VJ Introduction of Other Hormone into Peripheral Vein, Percutaneous Approach (ICD-10-PCS; 2016-10-09)
PROC: 10D00Z1 Extraction of Products of Conception, Low, Open Approach (ICD-10-PCS; principal; 2016-10-09 15:30)
DX: O34.211 Maternal care for low transverse scar from previous cesarean delivery (principal); Z37.0 Single live birth; Z3A.39 39 weeks gestation of pregnancy
CPT/HCPCS: 85025; 85610; 85730; 86592; 86850; 86900; 86901; 87340; 90715; 94760; 99464; J0290; J0690; J1170; J1885; J2274; J2370; J2405; J2590; J2765; J3010; J7120

== ENCOUNTER 2016-12-09 03:17 | Emergency (ER) | payer OTHER ==
[~2016-12-09] VITALS: Ht 152.4 cm; Wt 54.5 kg
[~2016-12-09 03:17] MED LIST changes: +IBUP800T25 PO
[2016-12-09 03:21] VITALS: Ht 152.4 cm; Wt 54.5 kg
[2016-12-09] MEDS ORDERED: HYDROCODONE/APAP (10/325) TAB PO ONE (04:00)
--- NOTE | 2016-12-09 04:29 | ERD ---
ER Documentation Chief Complaint Date/Time DATE: 12/09/16 TIME: 03:46 Chief Complaint pain/swelling right ankle while in shower about 4 hours ago HPI 21-year-old female presents emergency department for right ankle swelling. Stated that this happened 4 hours ago while she was in shower, fell, landed on her right foot/ankle, rolled it. LMP: Last week. A0. Denies headache, head trauma, neck pain, shoulder pain, chest pain, back pain, abdominal pain, nausea, vomiting, urinary symptoms, loss of bowel and bladder control, numbness or tingling sensation, fever, chills. No known drug allergies. No past medical history. Surgical history of C- section 1. Does not take any prescription medication at home. Social: Not working this time. Denies smoking, use of alcohol, illegal drugs. ROS All systems reviewed and are negative except as per history of present illness. Medications Home Meds Active Scripts Hydrocodone/Acetaminophen ([place] 5-325 Tablet) 1 Each Tablet, 1 TAB PO Q6H Y for PAIN, #20 TAB Prov:PASILABAN,KLAR F 12/09/16 Ibuprofen* (Ibuprofen*) 800 Mg Tablet, 800 MG PO Q8 Y for PAIN, #30 TAB Prov:PASILABAN,KLAR F 12/09/16 Ibuprofen* (Ibuprofen*) 800 Mg Tablet, 800 MG PO Q8, #30 TAB 0 Refills Prov:KORTNEY CROCKETT MD 10/11/16 Reported Medications Vit-Iron Fumarate-FA ( Tablet) 1 Each Tablet, 1 TAB PO DAILY, TAB 07/10/16 Allergies Allergies: Coded Allergies: No Known Drug Allergies (Verified Allergy, Unknown, 12/09/16) PMhx/Soc Medical and Surgical Hx: pt denies Medical Hx, pt denies Surgical Hx History of Surgery: Yes () Hx Alcohol Use: No Hx Substance Use: No Hx Tobacco Use: No Smoking Status: Never smoker Physical Exam Vitals Vital Signs Date Time Temp Pulse Resp B/P Pulse Ox O2 Delivery O2 Flow Rate FiO2 12/09/16 03:21 98.0 78 20 102/60 98 Physical Exam Const: [] Head: Atraumatic Eyes: Normal Conjunctiva ENT: Normal External Ears, Nose and Mouth. Neck: Full range of motion..~ No meningismus. Resp: Clear to auscultation bilaterally Cardio: Regular rate and rhythm, no murmurs Abd: Soft, non tender, non distended. Normal bowel sounds Skin: No petechiae or rashes Back: No midline or flank tenderness Ext: No cyanosis. Right ankle has obvious deformity/swelling and tenderness. Limited range of motion of the right ankle due to pain. Right pedal pulse is good. Right knee is unremarkable. Bilateral hips are stable and unremarkable. Left lower extremity are unremarkable. Neur: Awake and alert Psych: Normal Mood and Affect Results 24 hrs Current Medications Medications (Trade) Dose Ordered Sig/Biju Route PRN Reason Start Time Stop Time Status Last Admin Dose Admin Acetaminophen/ Hydrocodone Bitart ([place] (55/922)) 1 tab ONCE ONCE PO 12/09/16 04:00 12/09/16 04:01 DC 12/09/16 04:05 Procedures/MDM 21-year-old female presents emergency department for right ankle swelling. Stated that this happened 4 hours ago while she was in shower, fell, landed on her right foot/ankle, rolled it. LMP: Last week. A0. Denies headache, head trauma, neck pain, shoulder pain, chest pain, back pain, abdominal pain, nausea, vomiting, urinary symptoms, loss of bowel and bladder control, numbness or tingling sensation, fever, chills. No known drug allergies. No past medical history. Surgical history of C- section 1. Does not take any prescription medication at home. Social: Not working this time. Denies smoking, use of alcohol, illegal drugs. Physical exam: Right ankle has obvious deformity/swelling and tenderness. Limited range of motion of the right ankle due to pain. Right pedal pulse is good. Right knee is unremarkable. Bilateral hips are stable and unremarkable. Left lower extremity are unremarkable. Disease process was explained to the patient. She verbalized understanding and agreed with the diagnostic test, treatment, plan of care. X-ray of the right ankle: Nondisplaced distal right fibula/lateral malleolar fracture. Mild widening of the lateral mortise. Diffuse lateral soft tissue swelling. X-ray of the right tibia and fibula: Nondisplaced distal right fibular fracture. Treatment: [place]. Posterior short leg splint with stirrup. Crutches provided with training. Re-evaluation: We will to move right toes. Has good circulation and sensation to right toes. No neurovascular deficits prior to and after the application of splint. Differential diagnosis: Fracture versus displacement versus dislocation versus contusion versus sprain Final diagnosis: Nondisplaced distal fibular fracture Prescription: Dann. Maida. Instructed on RICE. Follow-up with primary care physician the next 24-48 hours. PCP to refer patient to orthopedic doctor in the next 24-48 hours. Come back to emergency department for any new symptoms or any worsening symptoms. All questions and concerns are answered. Patient verbalized understanding and agreed with the plan of care. Hemodynamically stable on discharge. Departure Diagnosis: Primary Impression: Right fibular fracture Condition: Stable Additional Instructions: Follow-up with primary care physician the next 24-48 hours. PCP to refer patient to orthopedic doctor in the next 24-48 hours. Come back to emergency department for any new symptoms or any worsening symptoms. All questions and concerns are answered. Patient verbalized understanding and agreed with the plan of care. DULCE MARIA CRAMER Dec 09, 2016 04:29
--- NOTE | 2016-12-09 04:48 | RADRPT ---
PROCEDURE: RIGHT ANKLE - 3 VIEWS CLINICAL INDICATION: 21-year-old female with ankle pain. TECHNIQUE: AP, oblique and lateral views of the right ankle were performed. The images reviewed on a PACS workstation. COMPARISON: None. FINDINGS: There is a nondisplaced distal right fibular fracture extending into the lateral malleolus. There is mild widening of the lateral mortise. There is no evidence for dislocation. The bone marrow mineral ization is within normal limits. There is diffuse lateral malleolar region soft tissue swelling. IMPRESSION: 1. Nondisplaced distal right fibula/lateral malleolar fracture. 2. Mild widening of the lateral mortise. 3. Diffuse lateral soft tissue swelling. .Yordy Viera MD, MD Date Time Electronically viewed and signed by .Yordy Viera MD, on 12/09/2016 04:47 .M/
--- NOTE | 2016-12-09 04:49 | RADRPT ---
PROCEDURE: RIGHT TIBIA/FIBULAR - 2 VIEWS CLINICAL INDICATION: 21-year-old female with trauma. TECHNIQUE: AP and lateral views of the right tibia and fibula were obtained. The images reviewed o n a PACS workstation. COMPARISON: Right ankle obtained concurrently. FINDINGS: There is a nondisplaced distal right fibular fracture. The knee and ankle joints appear intact witho ut evidence for dislocation. There is lateral malleolar region soft tissue swelling. The bone marrow mineralization is within normal limits. No radiopaque foreign body is seen. IMPRESSION: Nondisplaced distal right fibular fracture. .Yordy Viera MD, MD Date Time Electronically viewed and signed by .Yordy Viera MD, MD on 12/09/2016 04:48 .Zeeshan/
[2016-12-09] MEDS ORDERED: IBUP800T25 PO (05:02)
[2016-12-09] MEDS ORDERED: HYDR-906 PO (05:03)
[2016-12-09 05:39] VITALS: BP 102/60; PULSE 66; RESP 20
== END 2016-12-09 05:40 | disposition home or self-care (01) ==
LOC: FTE 03:17
DX: S82.832A Other fracture of upper and lower end of left fibula, initial encounter for closed fracture (principal); W18.2XXA Fall in (into) shower or empty bathtub, initial encounter; Y92.9 Unspecified place or not applicable
CPT/HCPCS: 73590; 73610; Z7502; Z7610